=== PATIENT | female | born 1965 | race Caucasian/White ===

== ENCOUNTER 2018-04-30 15:47 | Emergency (ER) | payer BC, OTHER ==
[2018-04-30] MEDS ORDERED: Sodium Chloride 0.9% 1,000 ML IV SCH (17:15)
--- NOTE | 2018-04-30 17:58 | EDM.PDOC ---
<Emelia Champion - Last Filed: 04/30/18 17:58> ED HPI GENERAL MEDICAL PROBLEM - General Chief Complaint: Abdominal Pain Stated Complaint: LEFT SIDE ABD PAIN/FROM CLINIC Time Seen by Provider: 04/30/18 16:40 Source of Information: Reports: Patient, Family History Limitations: Reports: No Limitations - History of Present Illness INITIAL COMMENTS - FREE TEXT/NARRATIVE: pt deveoped pain in the left upper abdoman under the diaphram since her colonoscomy last week. It does hurt when she takes a deep breath. Onset: Other ( since last mon. ) Duration: Day(s): Location: Reports: Abdomen Associated Symptoms: Reports: Chest Pain, Other ( hurts when she takes a deep breath. 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: - Past Surgical History GI Surgical History: Reports: Colonoscopy Female Surgical History: Reports: Hysterectomy Social & Family History - Tobacco Use Smoking Status *Q: Never Smoker - Caffeine Use Caffeine Use: Reports: Coffee - Recreational Drug Use Recreational Drug Use: No ED ROS GENERAL - Review of Systems Review Of Systems: See Below Constitutional: Reports: No Symptoms, Other ( Pt has not had a bm since last mon , She will go 6-7 days without a stool ) HEENT: Reports: No Symptoms Respiratory: Reports: No Symptoms Cardiovascular: Reports: No Symptoms Endocrine: Reports: No Symptoms GI/Abdominal: Reports: Abdominal Pain, Other (pt has pain in the left upper abdoman. ) : Reports: No Symptoms Musculoskeletal: Reports: No Symptoms Skin: Reports: No Symptoms Neurological: Reports: No Symptoms ED EXAM, GI/ABD - Physical Exam Exam: See Below Text/Narrative:: Pt arrived with pain in the left upper abdoman. She has had this pain since she had the colonoscopy 1 week ago. Exam Limited By: No Limitations General Appearance: Alert, Anxious, Mild Distress Ears: Normal TMs Nose: Normal Inspection Throat/Mouth: Normal Inspection Head: Atraumatic Neck: Normal Inspection Respiratory/Chest: No Respiratory Distress, Other ( hurts to take a deep breath. ) Cardiovascular: Regular Rate, Rhythm GI/Abdominal Exam: Soft, Tender, Other (mild tenderness in the rt upper abdoman. ) (Female) Exam: Deferred Rectal (Female) Exam: Deferred Back Exam: Normal Inspection Extremities: Normal Inspection Neurological: Alert, Oriented, Normal Cognition Psychiatric: Normal Affect Course - Vital Signs Last Recorded V/S: Last Vital Signs Temp 36.2 C 04/30/18 16:29 Pulse 62 04/30/18 16:29 Resp 14 04/30/18 16:29 BP 113/74 04/30/18 16:29 Pulse Ox 99 04/30/18 16:29 - Orders/Labs/Meds Orders: Active Orders 24 hr Category Date Time Status Abdomen Pelvis w Cont [CT] Stat Exams 04/30/18 17:49 Taken Chest 2V [CR] Stat Exams 04/30/18 17:55 Taken UA W/MICROSCOPIC [URIN] Urgent Lab 04/30/18 18:23 Ordered Iopamidol [Isovue-300 (61%)] Med 04/30/18 17:59 Active 94 ml IV . DIRECTED PRN Sodium Chloride 0.9% [Normal Saline] 1,000 ml Med 04/30/18 17:15 Active IV ASDIRECTED Sodium Chloride 0.9% [Normal Saline] 70 ml Med 04/30/18 18:00 Active IV ASDIRECTED Sodium Chloride 0.9% [Saline Flush] Med 04/30/18 18:00 Active 10 ml FLUSH ONETIME Medication Orders Sodium Chloride (Normal Saline) 1,000 mls @ 999 mls/hr IV ASDIRECTED [facility] Last Admin: 04/30/18 17:41 Dose: 999 mls/hr Sodium Chloride (Normal Saline) 70 mls @ 3 mls/sec IV ASDIRECTED [facility] Last Admin: 04/30/18 18:45 Dose: 3 mls/sec Iopamidol (Isovue-300 (61%)) 94 ml IV . DIRECTED PRN PRN Reason: RADIOLOGY EXAM Stop: 05/01/18 18:00 Last Admin: 04/30/18 18:45 Dose: 94 ml Sodium Chloride (Saline Flush) 10 ml FLUSH ONETIME [facility] Last Admin: 04/30/18 18:44 Dose: 10 ml Labs: Laboratory Tests 04/30/18 04/30/18 04/30/18 Range/Units 17:24 17:24 17:24 WBC 5.9 (4.5-11.0) K/uL RBC 4.03 (3.30-5.50) M/uL Hgb 11.4 L (12.0-15.0) g/dL Hct 35.3 L (36.0-48.0) % MCV 88 (80-98) fL MCH 28 (27-31) pg MCHC 32 (32-36) % Plt Count 229 (150-400) K/uL Neut % (Auto) 68 H (36-66) % Lymph % (Auto) 19 L (24-44) % [place] % (Auto) 12 H (2-6) % Eos % (Auto) 0 L (2-4) % Baso % (Auto) 1 (0-1) % Sodium 133 L (140-148) mmol/L Potassium 4.1 (3.6-5.2) mmol/L Chloride 96 L (100-108) mmol/L Carbon Dioxide 29 (21-32) mmol/L Anion Gap 12.1 (5.0-14.0) mmol/L BUN 11 (7-18) mg/dL Creatinine 0.6 (0.6-1.0) mg/dL Est Cr Clr Drug Dosing 102.68 mL/min Estimated GFR (MDRD) > 60 (>60) Glucose 96 (74-106) mg/dL Calcium 8.6 (8.5-10.1) mg/dL Total Bilirubin 0.3 (0.2-1.0) mg/dL AST 18 (15-37) U/L ALT 22 (12-78) U/L Alkaline Phosphatase 86 (46-116) U/L C-Reactive Protein 0.11 (0.0-0.3) mg/dL Total Protein 6.7 (6.4-8.2) g/dL Albumin 3.6 (3.4-5.0) g/dL Globulin 3.1 (2.3-3.5) g/dL Albumin/Globulin Ratio 1.2 (1.2-2.2) Urine Color Urine Appearance Urine pH (4.5-8.0) Ur Specific [place] (1.008-1.030) Urine Protein (NEGATIVE) mg/dL Urine Glucose (UA) (NEGATIVE) mg/dL Urine Ketones (NEGATIVE) mg/dL Urine Occult Blood (NEGATIVE) Urine Nitrite (NEGATIVE) Urine Bilirubin (NEGATIVE) Urine Urobilinogen (NORMAL) mg/dL Ur Leukocyte Esterase (NEGATIVE) Urine RBC (0-5) Urine WBC (0-5) Ur Epithelial Cells Amorphous Sediment Urine Bacteria Urine Mucus 04/30/18 Range/Units 18:23 WBC (4.5-11.0) K/uL RBC (3.30-5.50) M/uL Hgb (12.0-15.0) g/dL Hct (36.0-48.0) % MCV (80-98) fL MCH (27-31) pg MCHC (32-36) % Plt Count (150-400) K/uL Neut % (Auto) (36-66) % Lymph % (Auto) (24-44) % [place] % (Auto) (2-6) % Eos % (Auto) (2-4) % Baso % (Auto) (0-1) % Sodium (140-148) mmol/L Potassium (3.6-5.2) mmol/L Chloride (100-108) mmol/L Carbon Dioxide (21-32) mmol/L Anion Gap (5.0-14.0) mmol/L BUN (7-18) mg/dL Creatinine (0.6-1.0) mg/dL Est Cr Clr Drug Dosing mL/min Estimated GFR (MDRD) (>60) Glucose (74-106) mg/dL Calcium (8.5-10.1) mg/dL Total Bilirubin (0.2-1.0) mg/dL AST (15-37) U/L ALT (12-78) U/L Alkaline Phosphatase (46-116) U/L C-Reactive Protein (0.0-0.3) mg/dL Total Protein (6.4-8.2) g/dL Albumin (3.4-5.0) g/dL Globulin (2.3-3.5) g/dL Albumin/Globulin Ratio (1.2-2.2) Urine Color Yellow Urine Appearance Clear Urine pH 8.0 (4.5-8.0) Ur Specific [place] 1.010 (1.008-1.030) Urine Protein Negative (NEGATIVE) mg/dL Urine Glucose (UA) Normal (NEGATIVE) mg/dL Urine Ketones Negative (NEGATIVE) mg/dL Urine Occult Blood Negative (NEGATIVE) Urine Nitrite Negative (NEGATIVE) Urine Bilirubin Negative (NEGATIVE) Urine Urobilinogen Normal (NORMAL) mg/dL Ur Leukocyte Esterase Negative (NEGATIVE) Urine RBC 0-5 (0-5) Urine WBC 0-5 (0-5) Ur Epithelial Cells Rare Amorphous Sediment Not seen Urine Bacteria Not seen Urine Mucus Not seen Meds: Medications Generic Name Dose Route Start Last Admin Trade Name Freq PRN Reason Stop Dose Admin Sodium Chloride 1,000 mls @ 999 mls/hr 04/30/18 17:15 04/30/18 17:41 Normal Saline IV 999 mls/hr ASDIRECTED [facility] Administration Sodium Chloride 70 mls @ 3 mls/sec 04/30/18 18:00 04/30/18 18:45 Normal Saline IV 3 mls/sec ASDIRECTED [facility] Administration Iopamidol 94 ml 04/30/18 17:59 04/30/18 18:45 Isovue-300 (61%) IV 05/01/18 18:00 94 ml . DIRECTED PRN Administration RADIOLOGY EXAM Sodium Chloride 10 ml 04/30/18 18:00 04/30/18 18:44 Saline Flush FLUSH 10 ml ONETIME [facility] Administration - Re-Assessments/Exams Free Text/Narrative Re-Assessment/Exam: 04/30/18 18:02 pt has normal lab work with a normal crp, a cat scan and chest xray is pending. Departure - Departure Disposition: Admitted As Inpatient 67 Clinical Impression: Sigmoid volvulus Partial bowel obstruction Qualifiers: Intestinal obstruction type: unspecified Qualified Code(s): K56.600 - Partial intestinal obstruction, unspecified as to cause - Discharge Information Referrals: Shazia Rivera PA [Primary Care Provider] - Forms: ED Department Discharge <Patrice Clark - Last Filed: 04/30/18 20:14> Course - Vital Signs Text/Narrative:: Dr. Yecenia Chowdhury and Dr. Taylor both discussed situation @ - Radiology Interpretation Free Text/Narrative:: CT abd/pelvis-findings suggestive of possible sigmoid volvulus with partial bowel obstruction. CT Results Date: 04/30/18 CT Results Time: 19:55 Departure - Departure Time of Disposition: 20:30 Condition: Fair
[2018-04-30] MEDS ORDERED: Iopamidol 612 MG/ML 100 ML Bottle IV PRN (17:59)
[2018-04-30] MEDS ORDERED: Sodium Chloride 0.9% 10 ML Syringe FLUSH SCH (18:00)
--- NOTE | 2018-04-30 21:39 | PCM.CONS ---
H&P History of Present Illness - General Date of Service: 04/30/18 Source of Information: Patient, Family, Provider, RN Notes Reviewed History Limitations: Reports: No Limitations - History of Present Illness Initial Comments - Free Text/Narative: Ms. Chowdary is a 53-year-old woman who I was asked to see for possible admission. She presented to the emergency department today with pain in her left abdomen, present since a colonoscopy 5 days ago. She noted onset of pain immediately following colonoscopy. Pain is described as a dull ache that gets worse with jarring movements, deep breathing, or cough. Over the last 24 hours has noted episodes of more severe cramping pain. Evaluation in the emergency department shows stable vital signs and no significant temperature elevation. White blood cell count is within normal range. CT scan of the abdomen and pelvis shows evidence of a probable sigmoid volvulus with partial bowel obstruction. She denies any symptoms of nausea or vomiting, 2 days ago she did pass some gas but has not passed any since then. 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 Denies: Difficulty Swallowing, Distension, Hematemesis, Hematochezia, Melena, Nausea, Vomiting Exam - Exam Exam: See Below - Vital Signs Vital Signs: Last Vital Signs Temp 97.2 F 04/30/18 16:29 Pulse 62 04/30/18 16:29 Resp 14 04/30/18 16:29 BP 113/74 04/30/18 16:29 Pulse Ox 99 04/30/18 16:29 Weight: 139 lb 5.314 oz - Exam General: Alert, Oriented, Cooperative Neck: Supple, Trachea Midline, +2 Carotid Pulse wo Bruit Lungs: Clear to Auscultation, Normal Respiratory Effort Cardiovascular: Regular Rate, Regular Rhythm, Normal S1, Normal S2. No: Systolic Murmur, Diastolic Murmur GI/Abdominal Exam: Soft, No Organomegaly, Tender, Abnormal Bowel Sounds. No: Distended, Guarding, Rigid, Rebound - Patient Data Lab Results Last 24 hrs: Laboratory Results - last 24 hr 04/30/18 04/30/18 04/30/18 Range/Units 17:24 17:24 17:24 WBC 5.9 (4.5-11.0) K/uL RBC 4.03 (3.30-5.50) M/uL Hgb 11.4 L (12.0-15.0) g/dL Hct 35.3 L (36.0-48.0) % MCV 88 (80-98) fL MCH 28 (27-31) pg MCHC 32 (32-36) % Plt Count 229 (150-400) K/uL Neut % (Auto) 68 H (36-66) % Lymph % (Auto) 19 L (24-44) % [place] % (Auto) 12 H (2-6) % Eos % (Auto) 0 L (2-4) % Baso % (Auto) 1 (0-1) % Sodium 133 L (140-148) mmol/L Potassium 4.1 (3.6-5.2) mmol/L Chloride 96 L (100-108) mmol/L Carbon Dioxide 29 (21-32) mmol/L Anion Gap 12.1 (5.0-14.0) mmol/L BUN 11 (7-18) mg/dL Creatinine 0.6 (0.6-1.0) mg/dL Est Cr Clr Drug Dosing 102.68 mL/min Estimated GFR (MDRD) > 60 (>60) Glucose 96 (74-106) mg/dL Calcium 8.6 (8.5-10.1) mg/dL Total Bilirubin 0.3 (0.2-1.0) mg/dL AST 18 (15-37) U/L ALT 22 (12-78) U/L Alkaline Phosphatase 86 (46-116) U/L C-Reactive Protein 0.11 (0.0-0.3) mg/dL Total Protein 6.7 (6.4-8.2) g/dL Albumin 3.6 (3.4-5.0) g/dL Globulin 3.1 (2.3-3.5) g/dL Albumin/Globulin Ratio 1.2 (1.2-2.2) Urine Color Urine Appearance Urine pH (4.5-8.0) Ur Specific [place] (1.008-1.030) Urine Protein (NEGATIVE) mg/dL Urine Glucose (UA) (NEGATIVE) mg/dL Urine Ketones (NEGATIVE) mg/dL Urine Occult Blood (NEGATIVE) Urine Nitrite (NEGATIVE) Urine Bilirubin (NEGATIVE) Urine Urobilinogen (NORMAL) mg/dL Ur Leukocyte Esterase (NEGATIVE) Urine RBC (0-5) Urine WBC (0-5) Ur Epithelial Cells Amorphous Sediment Urine Bacteria Urine Mucus 04/30/18 Range/Units 18:23 WBC (4.5-11.0) K/uL RBC (3.30-5.50) M/uL Hgb (12.0-15.0) g/dL Hct (36.0-48.0) % MCV (80-98) fL MCH (27-31) pg MCHC (32-36) % Plt Count (150-400) K/uL Neut % (Auto) (36-66) % Lymph % (Auto) (24-44) % [place] % (Auto) (2-6) % Eos % (Auto) (2-4) % Baso % (Auto) (0-1) % Sodium (140-148) mmol/L Potassium (3.6-5.2) mmol/L Chloride (100-108) mmol/L Carbon Dioxide (21-32) mmol/L Anion Gap (5.0-14.0) mmol/L BUN (7-18) mg/dL Creatinine (0.6-1.0) mg/dL Est Cr Clr Drug Dosing mL/min Estimated GFR (MDRD) (>60) Glucose (74-106) mg/dL Calcium (8.5-10.1) mg/dL Total Bilirubin (0.2-1.0) mg/dL AST (15-37) U/L ALT (12-78) U/L Alkaline Phosphatase (46-116) U/L C-Reactive Protein (0.0-0.3) mg/dL Total Protein (6.4-8.2) g/dL Albumin (3.4-5.0) g/dL Globulin (2.3-3.5) g/dL Albumin/Globulin Ratio (1.2-2.2) Urine Color Yellow Urine Appearance Clear Urine pH 8.0 (4.5-8.0) Ur Specific [place] 1.010 (1.008-1.030) Urine Protein Negative (NEGATIVE) mg/dL Urine Glucose (UA) Normal (NEGATIVE) mg/dL Urine Ketones Negative (NEGATIVE) mg/dL Urine Occult Blood Negative (NEGATIVE) Urine Nitrite Negative (NEGATIVE) Urine Bilirubin Negative (NEGATIVE) Urine Urobilinogen Normal (NORMAL) mg/dL Ur Leukocyte Esterase Negative (NEGATIVE) Urine RBC 0-5 (0-5) Urine WBC 0-5 (0-5) Ur Epithelial Cells Rare Amorphous Sediment Not seen Urine Bacteria Not seen Urine Mucus Not seen Result Diagrams: 04/30/18 17:24 04/30/18 17:24 Consult PN Assessment/Plan Procedures: Procedures COMP SCREEN MAMMOGRAM ADD-ON (12/31/15) US EXAM PELVIC COMPLETE (12/12/14) (1) Sigmoid volvulus Current Visit: Yes (2) Partial bowel obstruction SNOMED Code(s): 57520168 Code(s): K56.600 - PARTIAL INTESTINAL OBSTRUCTION, UNSPECIFIED TO CAUSE Current Visit: Yes Qualifiers: Intestinal obstruction type: unspecified Qualified Code(s): K56.600 - Partial intestinal obstruction, unspecified as to cause Problem List Initiated/Reviewed/Updated: Yes Plan: ASSESSMENT AND RECOMMENDATIONS SIGMOID VOLVULUS WITH PARTIAL BOWEL OBSTRUCTION-symptoms present since colonoscopy 5 days ago. No nausea or vomiting, she was passing a small amount of gas until 2 days ago. White blood cell count is normal and pain is been stable except for an increase in episodic cramping pain over the past 24 hours. We discussed options for management and recommended hospital admission, surgical consult with Dr. Chowdhury in a.m. She wishes to defer hospitalization at this point and obtain a second opinion from gastroenterology tomorrow in [place]. CT scan will be ported to the [facility] PACs system and records will be copied. I encouraged her to return to the emergency room immediately if she develops nausea, vomiting, fever or increase in pain. I also explained to her that this could become a much more serious problem over a short period of time. I recommended that she be on clear liquids only, but then nothing by mouth after midnight until seen by her physician in [place] tomorrow. Requesting Provider: Dr. Clark Date Consult Requested: 04/30/18 Reason for Consult: Sigmoid volvulus, partial bowel obstruction Patient History Reviewed: Yes Notified Requestor: Yes
--- NOTE | 2018-05-01 09:05 | CR ---
CHEST: 2 view CLINICAL HISTORY:Left upper abdominal pain COMPARISON:None FINDINGS: Lung gay are clear. Heart and pulmonary vascular edema. Normal. There are no effusions. . IMPRESSION: No acute pulmonary process
== END 2018-04-30 21:42 | disposition critical access hospital (66) ==
LOC: JP.ED 15:47
DX: K56.2 Volvulus (principal)
CPT/HCPCS: 36415; 71046; 74177; 80053; 81001; 85025; 86140; 96360; 99285; J7030; J7050; Q9967